=== PATIENT | female | born 1950 | race Two or more races ===

== ENCOUNTER 2024-06-07 21:55 | Emergency (ER) | payer OTHER ==
[~2024-06-07] VITALS: Ht 154.9 cm; Wt 63.2 kg
[2024-06-07 22:06] VITALS: BP 112/59; PULSE 70; RESP 15; O2SAT 96
--- NOTE | 2024-06-07 22:49 | ED.PDOC ---
Musculoskeletal HPI Comments 73-year-old female complaining of left hand 5th digit finger pain. Patient states she was locking her gait to her house when she got back to her house she noticed bruising and swelling on her finger. States she thought she might have been bitten by a spider. Denies any pain only when touching. Says she does recall when she was trying to lock the fact she did have to pull in the lock which may have pinched her finger Chief Complaint: Upper Extremity Time Seen by MD: 22:08 Reviewed Notes: Nurses Notes Information Source: Patient Mode of Arrival: Ambulatory Past Medical History PAST MEDICAL HISTORY: Denies Surgical History: Denies all surgeries CALL CENTER OPERATOR History: No Pertinent CALL CENTER OPERATOR History Constitutional: denies: chills, diaphoresis, fatigue, fever, malaise, sweats, weakness, others EENTM: denies: blurred vision, double vision, ear bleeding, ear discharge, ear drainage, ear pain, ear ringing, eye pain, eye redness, hearing loss, mouth pain, mouth swelling, nasal discharge, nose bleeding, nose congestion, nose pain, photophobia, tearing, throat pain, throat swelling, voice changes, others Respiratory: denies: cough, hemoptysis, orthopnea, SOB at rest, shortness of breath, SOB with excertion, stridor, wheezing, others Cardiovascular: denies: chest pain, dizzy spells, diaphoresis, Dyspnea on exertion, edema, irregular heart beat, left arm pain, lightheadedness, palpitations, PND, syncope, others Gastrointestinal: denies: abdomen distended, abdominal pain, blood streaked bowels, constipated, diarrhea, dysphagia, difficulty swallowing, hematemesis, melena, nausea, poor appetite, poor fluid intake, rectal bleeding, rectal pain, vomiting, others Genitourinary: denies: abnormal vagina bleeding, burning, dyspareunia, dysuria, flank pain, frequency, hematuria, incontinence, pain, , vagina discharge, urgency, others Neurological: denies: dizziness, fainting, headache, left sided numbness, left sided weakness, numbness, paresthesia, pre-existing deficit, right sided numbness, right sided weakness, seizure, speech problems, tingling, tremors, weakness, others Musculoskeletal: denies: back pain, gout, joint pain, joint swelling, muscle pain, muscle stiffness, neck pain, others Integumetry: denies: bruises, change in color, change in hair/nails, dryness, laceration, lesions, lumps, rash, wounds, others Allergic/Immunocompromised: denies: Difficulty Healing, Frequent Infections, Hives, Itching, others Physical Exam General Appearance: No Apparent Distress, Normal HEENT: Normal ENT Inspection, Pharynx Normal, TMs Normal Neck: Full Range of Motion, Non-Tender, Normal, Normal Inspection Respiratory: Chest Non-Tender, Lungs Clear, No Accessory Muscle Use, No Respiratory Distress, Normal Breath Sounds Cardiovascular: No Edema, No JVD, No Murmur, No Gallop, Normal Peripheral Pulses, Regular Rate/Rhythm Breast Exam: Deferred Gastrointestinal: No Organomegaly, Non Tender, No Pulsatile Mass, Normal Bowel Sounds, Soft Genitalia: Deferred Pelvic: Deferred Rectal: Deferred Extremities: No calf tenderness, Normal capillary refill, Normal inspection, Normal range of motion, Non-tender, No pedal edema Musculoskeletal : Location: Left Extremity Location: Little Finger Apperance: Normal Neurologic: Alert, customer care associate II-XII nml as Tested, No Motor Deficits, Normal Affect, Normal Mood, No Sensory Deficits Cerebellar Function: Normal Reflexes: Normal Skin: Dry, Normal Color, Warm Lymphatic: No Adenopathy Was a procedure done? Was a procedure done?: No Differential Diagnosis EXT Differential Diagnosis: Fracture, Sprain, Dislocation X-Ray, Labs, Meds, VS Comment Imaging: X-rays and CT scans were reviewed and interpreted by this provider, imaging shows no fractures and no pathological disease. Pending radiology review. Laboratory: Labs reviewed and interpreted by this provider. No significant abnormalities noted. Patient has prior medical visits reviewed. Med reconciliation performed Vital signs reviewed Time of 1ST Reevaluation: 22:49 Reevaluation 1ST: Improved Patient Education/Counseling: Diagnosis, Treatment, Need For Follow Up (Patient advised to follow-up in the emergency room in the next 24 to 48 hours if symptoms do not improve. Advised follow-up with PCP in the next 3 to 5 days. Patient verbalized understanding. ) Family Education/Counseling: Diagnosis Departure 1 Departure Time of Disposition: 22:48 Impression: Primary Impression: Contusion of left little finger Qualified Codes: S60.052A - Contusion of left little finger without damage to nail, initial encounter Disposition: HOME / SELF CARE / HOMELESS Condition: Fair Discharged With: Self Critical Care Note Critical Care Time?: No Stability Stability form required: No Heart Score Heart Score: Heart Score Response (Comments) Value History N/A 0 EKG N/A 0 Age N/A 0 Risk Factors N/A 0 Troponin N/A 0 Total 0 ANTHONY ALLEN Jun 07, 2024 22:49
== END 2024-06-07 23:56 | disposition home or self-care (01) ==
LOC: ER 21:55
DX: S60.052A Contusion of left little finger without damage to nail, initial encounter (principal); X58.XXXA Exposure to other specified factors, initial encounter; Y93.89 Activity, other specified; Y92.89 Other specified places as the place of occurrence of the external cause; Y99.8 Other external cause status